=== PATIENT | male | born 1985 | race Caucasian/White ===

== ENCOUNTER 2016-11-16 17:47 | Emergency (ER) | payer SELFPAY ==
[~2016-11-16] VITALS: Wt 61.0 kg
[~2016-11-16 17:47] MED LIST: OMEP20CA16 PO; RANI150T5 PO
--- NOTE | 2016-11-16 19:28 | ERD ---
ER Documentation Chief Complaint Date/Time DATE: 11/16/16 TIME: 19:27 Chief Complaint BILATERAL EYE PAIN HPI This 28-year-old male presents with bilateral eye irritation after getting some WD 40/in his eye. He irrigated at home but he is here for evaluation. He has mild irritation which is improving. He denies visual changes or visual field deficits, fevers or additional complaints. ROS All systems reviewed and are negative except as per history of present illness. Medications Home Meds Reported Medications Ranitidine Hcl* (Ranitidine Hcl*) 150 Mg Tablet, 150 MG PO BID 01/14/13 Omeprazole* (Omeprazole*) 20 Mg Capsule.dr, 20 MG PO DAILY 01/14/13 Allergies Allergies: Coded Allergies: No Known Allergy (Unverified , 01/14/13) PMhx/Soc Medical and Surgical Hx: pt denies Medical Hx, pt denies Surgical Hx History of Surgery: No Anesthesia Reaction: No (N/A) Hx Neurological Disorder: No Hx Respiratory Disorders: No Hx Cardiac Disorders: No Hx Psychiatric Problems: No Hx Miscellaneous Medical Probl: No Hx Alcohol Use: No Hx Substance Use: No Hx Tobacco Use: No Smoking Status: Never smoker Physical Exam Vitals Vital Signs Date Time Temp Pulse Resp B/P Pulse Ox O2 Delivery O2 Flow Rate FiO2 11/16/16 17:49 98.0 77 18 180/77 99 Physical Exam Const: [] Alert, [id number]. Head: Atraumatic Eyes: Normal Conjunctiva. Eyes are PERRLA and extraocular movements intact. Visual acuity 20/30 bilaterally. No appreciable fluorescein uptake. ENT: Normal External Ears, Nose and Mouth. Neck: Full range of motion..~ No meningismus. Resp: Clear to auscultation bilaterally Cardio: Regular rate and rhythm, no murmurs Abd: Soft, non tender, non distended. Normal bowel sounds Skin: No petechiae or rashes Back: No midline or flank tenderness Ext: No cyanosis, or edema Neur: Awake and alert Psych: Normal Mood and Affect Results 24 hrs Current Medications Medications (Trade) Dose Ordered Sig/Russel Route PRN Reason Start Time Stop Time Status Last Admin Dose Admin Tetracaine HCl (Tetracaine 0.5% Oph) 1 drop ONCE ONCE BOTH EYES 11/16/16 19:30 11/16/16 19:31 Fluorescein Sodium (Dlsto-E-Sukip) 1 strip ONCE ONCE BOTH EYES 11/16/16 19:30 2 19:31 Irrigating Solution (Eye Wash) 1 applic ONCE ONCE BOTH EYES 11/16/16 19:30 2 19:31 Procedures/MDM Eyes were irrigated copiously. Patient presents with bilateral eye irritation after getting WD-40/'s eyes. Seems to be improving without treatment. Eyes were irrigated copiously here in the ED. Patient shows no signs of threats to vision, signs of coursing corneal ulceration, dendritic lesions or bacterial infection. We discharged home instructions for artificial tears and referral to local [facility] for persistent symptoms. Should otherwise return to the ER for new or worsening symptoms. No clinical evidence to suggest optic neuritis, retinal artery ischemia, acute glaucoma, orbital cellulitis, threats to vision. Departure Diagnosis: Primary Impression: Eye injury Encounter type: initial encounter Laterality: bilateral Qualified Code: S05.91XA - Bilateral eye injuries, initial encounter Condition: Stable Patient Instructions: Eye Exposure, Chemical Referrals: [facility] Hours: Mon - Fri 9:00 AM - 5:00 PM Additional Instructions: No significant abnormalities noted today. Likely chemical irritation should slowly resolve over the next 1-2 days. See ophthalmology for persistent symptoms or new or worsening symptoms for YESSI NEWMAN MD Nov 16, 2016 19:28
[2016-11-16] MEDS ORDERED: TETRACAINE 0.5% 15 ML OPH BOTH EYES ONE (19:30)
[2016-11-16] MEDS ORDERED: FLUORESCEIN STRIP BOTH EYES ONE (19:30)
[2016-11-16] MEDS ORDERED: OPHTHALMIC IRRIG SOLUTION 120 ML BOTH EYES ONE (19:30)
== END 2016-11-16 19:42 | disposition home or self-care (01) ==
LOC: FTE 17:47
DX: S05.92XA Unspecified injury of left eye and orbit, initial encounter (principal); S05.91XA Unspecified injury of right eye and orbit, initial encounter; X58.XXXA Exposure to other specified factors, initial encounter; Y92.9 Unspecified place or not applicable
CPT/HCPCS: 99282

== ENCOUNTER 2019-06-16 11:39 | Emergency (ER) | payer OTHER ==
[~2019-06-16] VITALS: Wt 70.3 kg
[~2019-06-16 11:39] MED LIST changes: +IBUP-1542 PO
[2019-06-16 15:16] VITALS: BP 138/76; PULSE 76; RESP 20
== END 2019-06-16 15:17 | disposition home or self-care (01) ==
LOC: FTE 11:39
DX: R10.31 Right lower quadrant pain (principal)
CPT/HCPCS: 76536; Z7502